=== PATIENT | female | born 1990 | race Caucasian/White ===

== ENCOUNTER 2022-09-23 13:43 | Outpatient (CLI) | payer OTHER ==
[2022-09-23] MEDS ORDERED: PRENATAL TABLE1 EAC1 PO (14:25)
== END 2022-09-23 23:28 | disposition home or self-care (01) ==
LOC: OBS/DEL 13:43
PROVIDERS: ATTEND Specialist
DX: O23.33 Infections of other parts of urinary tract in pregnancy, third trimester (principal); N39.0 Urinary tract infection, site not specified; Z3A.34 34 weeks gestation of pregnancy; Z88.0 Allergy status to penicillin

== ENCOUNTER 2022-09-24 12:53 | Outpatient (CLI) | payer OTHER ==
[~2022-09-24 12:53] MED LIST: PRENATAL TABLE1 EAC1 PO
== END 2022-09-24 14:25 | disposition home or self-care (01) ==
LOC: PRENATAL 12:53
PROVIDERS: ATTEND Obstetrics & Gynecology Maternal & Fetal Medicine
DX: O35.9XX0 Maternal care for (suspected) fetal abnormality and damage, unspecified, not applicable or unspecified (principal); O35.3XX0 Maternal care for (suspected) damage to fetus from viral disease in mother, not applicable or unspecified; O09.219 Supervision of pregnancy with history of pre-term labor, unspecified trimester; Z3A.34 34 weeks gestation of pregnancy

== ENCOUNTER 2022-10-26 13:30 | Inpatient (IN) | payer OTHER ==
[~2022-10-26] VITALS: Ht 149.9 cm; Wt 3.2 kg
[2022-10-29] MEDS ORDERED: PRENATABS RX T1 EACH PO (06:59)
[2022-10-29] MEDS ORDERED: FOLIC ACID0.8 M1 PO (07:00)
== END 2022-11-01 13:55 | disposition home or self-care (01) | DRG 785 ==
LOC: LDR 10-29 06:06 → O/R 10-29 06:06 → OB/GYN 10-29 13:30 → O/R 10-29 15:33 → OB/GYN 10-29 23:08
PROVIDERS: ADMIT Specialist; ATTEND Specialist
PROC: 0UB70ZZ Excision of Bilateral Fallopian Tubes, Open Approach (ICD-10-PCS; 2022-10-29)
PROC: 4A1HXCZ Monitoring of Products of Conception, Cardiac Rate, External Approach (ICD-10-PCS; 2022-10-29)
PROC: 10D00Z1 Extraction of Products of Conception, Low, Open Approach (ICD-10-PCS; principal; 2022-10-29 15:00)
DX: O36.8330 Maternal care for abnormalities of the fetal heart rate or rhythm, third trimester, not applicable or unspecified (principal); Z3A.40 40 weeks gestation of pregnancy; Z37.0 Single live birth; Z20.822 Contact with and (suspected) exposure to COVID-19; Z30.2 Encounter for sterilization